=== PATIENT | female | born 1955 | race Caucasian/White ===

== ENCOUNTER 2019-03-12 13:21 | Day surgery (SDC) | payer OTHER ==
[~2019-03-12] VITALS: Ht 177.8 cm; Wt 112.5 kg
[2019-03-12 14:07] VITALS: Ht 177.8 cm; Wt 112.5 kg
[2019-03-12] MEDS ORDERED: AMLO5TAB4 PO (14:15)
[2019-03-12] MEDS ORDERED: LOSA1TAB28 PO (14:15)
[2019-03-12 14:39] VITALS: BP 132/62; PULSE 81; RESP 18
--- NOTE | 2019-03-12 15:11 | PREAC ---
Date/Time of Note Date/Time of Note DATE: 03/12/19 TIME: 15:10 Anesthesia Eval and Record Evaluation Time Pre-Procedure Interview DATE: 03/12/19 TIME: 15:10 Age 64 Sex female NPO: 8 hrs Preoperative diagnosis cirrhosis screening for colon cancer Planned procedure egd colonoscopy Past Medical History Past Medical History: Includes Cardio: HTN Hepatic: Hepatitis, Cirrhosis GI: Obesity Surgery & Anesthesia Issues No known issue Meds Anticoagulation: No Beta Dhiraj within 24 hr: No Reason Beta Dhiraj not given: Pt. not on B-Dhiraj Reported Medications Amlodipine Besylate* (Norvasc*) 5 Mg Tablet, 5 MG PO DAILY, TAB 03/12/19 Losartan-Hydrochlorothiazide (Losartan-HCTZ) 100-12.5 Mg Tab, 1 TAB PO DAILY, TAB 03/12/19 Meds reviewed: Yes Allergies Coded Allergies: No Known Allergy (Unverified , 03/12/19) Allergies Reviewed: Yes Labs/Studies Labs Reviewed: Reviewed by anesthesiologist test: N/A Pre-procedure Exam Airway: Adequate mouth opening, Adequate thyromental dist Mallampati: Mallampati III Teeth: Normal Lung: Normal Heart: Normal ASA Physical Status ASA physical status: 4 Emergency: None Pre-operative Attestations Prior to commencing anesthesia and surgery, the patient was re-evaluated, there was verification of: *The patient's identity *The results of appropriate recent lab work and preoperative vital signs *The above evaluation not changing prior to induction *Anesthetic plan, risk benefits, alternative and complications discussed with patient/family; questions answered; patient/family understands, accepts and wishes to proceed. MARCEL OTT DO Mar 12, 2019 15:11
[2019-03-12] MEDS ORDERED: LIDOCAINE 2% (SDV) 5 ML INJ ONE (15:12)
[2019-03-12] MEDS ORDERED: PROPOFOL 20 ML ONE (15:12)
[2019-03-12] MEDS ORDERED: FENTAnyl 50 MCG/ML VIAL ONE (15:13)
[2019-03-12] MEDS ORDERED: MIDAZOLAM 1 MG/ML 2 ML INJ ONE (15:13)
--- NOTE | 2019-03-12 15:39 | PAC ---
Date/Time of Note Date/Time of Note DATE: 03/12/19 TIME: 15:39 Post-Anesthesia Notes Post-Anesthesia Note Last documented vital signs 105/60 15 99% 98.0 Activity: WNL Respiratory function: WNL Cardiovascular function: WNL Mental status: Baseline Pain reasonably controlled: Yes Hydration appropriate: Yes Nausea/Vomiting absent: Yes MARCEL OTT DO Mar 12, 2019 15:39
[2019-03-12 16:15] VITALS: BP 122/74; PULSE 80; RESP 18
== END 2019-03-12 16:52 | disposition home or self-care (01) ==
LOC: GIL 13:21
PROVIDERS: ATTEND Internal Medicine Gastroenterology
DX: Z12.11 Encounter for screening for malignant neoplasm of colon (principal); D12.2 Benign neoplasm of ascending colon; I85.00 Esophageal varices without bleeding; K29.70 Gastritis, unspecified, without bleeding; I10 Essential (primary) hypertension
CPT/HCPCS: 43239; 45380; 88305; 88312; J2250; J3010; Z7610